=== PATIENT | male | born 1965 | race Caucasian/White ===

== ENCOUNTER → 2016-12-16 | Outpatient (REF) ==
--- NOTE | 2016-12-16 13:59 | REP ---
Clinical: Chest pain . Comparison: None of . Technique: PA and lateral. Findings: The mediastinum and cardiac silhouette are normal. The lung coto are clear and without acute consolidation, effusion, or pneumothorax. The skeletal structures are intact and normal. Impression: 1. No acute cardiopulmonary process. Signed by Kareem Buchanan MD 12/16/2016 01:51 P
--- NOTE | 2016-12-16 13:59 | REP ---
Clinical: Pain and disability. Technique: AP, lateral, bilateral oblique and sunrise views of the left knee. Findings: Cortical irregularity involving the femoral condyles and proximal tibia as well as increase subchondral sclerosis at the tibial surface is appreciated along with spurring along the patellar margin. Well corticated patellar fragment at the 2 o'clock position may represent old injury versus chronic bipartite patella. No acute fracture dislocation. No effusion. Findings: Moderate tricompartmental osteoarthritic degenerative changes. 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 Signed by Kareem Buchanan MD 12/16/2016 01:51 P
--- NOTE | 2016-12-16 14:00 | REP ---
Clinical: Pain and disability. Technique: Internal rotation, external rotation, and Y view. Findings: Cortical irregularity and spurring at the acromioclavicular joint is appreciated along with subtle cortical irregularity at the greater tuberosity of the proximal humerus. No periarticular calcifications. No evidence for acute fracture or dislocation. Impression: Mild arthritic degenerative changes. Signed by Kareem Buchanan MD 12/16/2016 01:52 P
--- NOTE | 2016-12-16 14:02 | REP ---
Clinical: Pain and disability. Technique: AP, lateral, flexion/extension, bilateral oblique, and open mouth views of the cervical spine. Findings: The patient is status post anterior fusion at the C5-6 level. Alignment and lordosis maintained. No acute fracture/ compression injury or subluxation. Moderate multilevel degenerative changes include anterior osteophytosis, endplate sclerosis with disc space narrowing. Posterior elements and spinous processes appear intact. C1-C2 articulation and odontoid process appear normal. Narrowing to the C5-6 neural foramen suggested on oblique images. Impression: Stable alignment and lordosis. Multilevel degenerative disc disease. Evidence for prior anterior fusion at the C5-6 level. Signed by Kareem Buchanan MD 12/16/2016 01:53 P
== END ==
LOC: M SMT 12:23
PROVIDERS: ATTEND Internal Medicine
DX: Z02.1 Encounter for pre-employment examination (principal)